=== PATIENT | female | born 1990 | race Hispanic/Latino ===

== ENCOUNTER 2017-04-24 00:03 | Inpatient (IN) | payer OTHER ==
[2017-04-24] VITALS (16 sets, daily range): BP systolic 91–111; BP diastolic 49–71
[~2017-04-24] VITALS: Ht 160 cm; Wt 88.0 kg
[~2017-04-24 00:03] MED LIST: ACETAMINOP160 MG/5 M PO; AMOXICILLIN500 MG PO; FERR SULFATE325 MG PO; IBUPROFEN600 MG PO; PENICILLIN V P250 MG PO; PRE-NATAL PO; TYLENOL 500MG TAB PO; TYLENOL325 MG PO; ZITHROMAX250 MG PO
[2017-04-24 00:39] LABS: HEMATOCRIT 29.7 % (37.0-47.0); HEMOGLOBIN 9.1 g/dl (12.0-16.0); MEAN CELL VOLUME 74.3 fL CALC (80.0-100.0); MEAN CORPUSCULAR HGB 22.8 pG CALC (26.0-32.0); MEAN CORPUSCULAR HGB CONC 30.6 g/L CALC (32.0-36.0); NEUT# 6.44 thou/uL (2.00-7.15); RED CELL DISTRI WIDTH 19.7 % (11.5-15.5)
[2017-04-24 00:40] LABS: URINE BILIRUBIN - DIPSTICK NEGATIVE (NEGATIVE); URINE BLOOD DIPSTICK NEGATIVE (NEGATIVE); URINE CLARITY SLIGHT CLOUDY; URINE COLOR YELLOW; URINE GLUCOSE - DIPSTICK NEGATIVE (NEGATIVE); URINE KETONE NEGATIVE (NEGATIVE); URINE LEUK ESTERASE NEGATIVE (Negative); URINE NITRITE - DIPSTICK NEGATIVE (Negative); URINE PROTEIN - DIPSTICK NEGATIVE (NEG-TRACE); URINE SPECIFIC GRAVITY 1.015; URINE UROBILINOGEN - DIPSTICK 0.2 E.U./dL (0.2)
[2017-04-24 00:46] LABS: BARBITURATES NEGATIVE (NEGATIVE); COCAINE NEGATIVE (NEGATIVE); METHADONE NEGATIVE (NEGATIVE); OXCYCODONE NEGATIVE (NEGATIVE); TETRAHYDROCANNABIONOL NEGATIVE (NEGATIVE); TRICYLIC ANTIDEPRESSANTS NEGATIVE (NEGATIVE)
[2017-04-24 01:02] LABS: ALBUMIN 3.1 g/dL (3.2-5.0); ALKALINE PHOSPHATASE 118 u/l (38-126); ANION GAP 11 (6-22 (CALC)); BILIRUBIN, TOTAL 0.2 mg/dL (0.0-1.4); BUN 6 mg/dL (7-17); BUN/CREATININE RATIO 12 (12-20 (CALC)); CALCIUM 8.9 mg/dL (8.4-10.2); CARBON DIOXIDE 24 mmol/l (22-30); CHLORIDE 107 mmol/l (95-108); CREATININE 0.5 mg/dL (0.5-1.0); GFR > 60 ML/MIN (>=60 (CALC)); GFR FOR AFR.AMER. > 60 ML/MIN (>=60 (CALC)); GLUCOSE 93 mg/dL (65-105); POTASSIUM 3.7 mmol/l (3.5-5.1); SGOT/AST 32 u/l (14-36); SGPT/ALT 32 u/l (9-52); SODIUM 138 mmol/l (137-146); TOTAL PROTEIN 6.4 g/dL (6.3-8.2)
[2017-04-24 15:38] LABS: HEMATOCRIT 25.1 % (37.0-47.0); HEMOGLOBIN 7.5 g/dl (12.0-16.0); IMMATURE GRANULOCYTES 0.9 % (0.0-1.0); MEAN CELL VOLUME 74.7 fL CALC (80.0-100.0); MEAN CORPUSCULAR HGB 22.3 pG CALC (26.0-32.0); MEAN CORPUSCULAR HGB CONC 29.9 g/L CALC (32.0-36.0); NEUT# 9.84 thou/uL (2.00-7.15); RED BLOOD COUNT 3.36 mill/uL (4.20-5.60); RED CELL DISTRI WIDTH 19.6 % (11.5-15.5)
[2017-04-25] VITALS (13 sets, daily range): BP systolic 92–112; BP diastolic 55–72
[2017-04-25 06:17] LABS: HEMATOCRIT 22.9 % (37.0-47.0); IMMATURE GRANULOCYTES 0.7 % (0.0-1.0); MEAN CELL VOLUME 74.8 fL CALC (80.0-100.0); MEAN CORPUSCULAR HGB 22.9 pG CALC (26.0-32.0); MEAN CORPUSCULAR HGB CONC 30.6 g/L CALC (32.0-36.0); NEUT# 7.58 thou/uL (2.00-7.15); RED BLOOD COUNT 3.06 mill/uL (4.20-5.60); RED CELL DISTRI WIDTH 19.6 % (11.5-15.5)
[2017-04-25 15:05] LABS: HEMATOCRIT 28.3 % (37.0-47.0); HEMOGLOBIN 8.8 g/dl (12.0-16.0); MEAN CELL VOLUME 77.1 fL CALC (80.0-100.0); MEAN CORPUSCULAR HGB CONC 31.1 g/L CALC (32.0-36.0); RED BLOOD COUNT 3.67 mill/uL (4.20-5.60); RED CELL DISTRI WIDTH 19.6 % (11.5-15.5)
[2017-04-26 07:20] VITALS: BP 107/66
[2017-04-26 16:05] VITALS: BP 106/69
[2017-04-26 18:57] VITALS: BP 106/65
[2017-04-27 04:09] VITALS: BP 110/71
[2017-04-27] MEDS ORDERED: LORTAB 7.57.5 MG PO (10:28)
[2017-04-27] MEDS ORDERED: IBUPROFEN600 MG PO (10:28)
== END 2017-04-27 12:05 | disposition home or self-care (01) | DRG 765 ==
LOC: OB 00:03
PROC: 10D00Z1 Extraction of Products of Conception, Low, Open Approach (ICD-10-PCS; principal; 2017-04-24)
PROC: 0UB70ZZ Excision of Bilateral Fallopian Tubes, Open Approach (ICD-10-PCS; 2017-04-24)
PROC: 30233N1 Transfusion of Nonautologous Red Blood Cells into Peripheral Vein, Percutaneous Approach (ICD-10-PCS; 2017-04-25)
PROC: 30233N1 Transfusion of Nonautologous Red Blood Cells into Peripheral Vein, Percutaneous Approach (ICD-10-PCS; 2017-04-25)
DX: O33.5XX0 Maternal care for disproportion due to unusually large fetus, not applicable or unspecified (principal); D62 Acute posthemorrhagic anemia; O99.02 Anemia complicating childbirth; D50.9 Iron deficiency anemia, unspecified; O90.81 Anemia of the puerperium; Z3A.39 39 weeks gestation of pregnancy; Z37.0 Single live birth
CPT/HCPCS: J2270; J2795; P9016

== ENCOUNTER 2018-02-06 14:57 | Emergency (ER) | payer SELFPAY ==
[~2018-02-06] VITALS: Ht 160 cm; Wt 64.2 kg
[~2018-02-06 14:57] MED LIST changes: +LORTAB 7.57.5 MG PO
[2018-02-06 15:54] LABS: HEMATOCRIT 27.5 % (37.0-47.0); HEMOGLOBIN 8.7 g/dl (12.0-16.0); IMMATURE GRANULOCYTES 0.3 % (0.0-1.0); MEAN CELL VOLUME 81.4 fL CALC (80.0-100.0); MEAN CORPUSCULAR HGB 25.7 pG CALC (26.0-32.0); MEAN CORPUSCULAR HGB CONC 31.6 g/L CALC (32.0-36.0); NEUT# 6.23 thou/uL (2.00-7.15); RED BLOOD COUNT 3.38 mill/uL (4.20-5.60); RED CELL DISTRI WIDTH 13.5 % (11.5-15.5)
[2018-02-06 16:09] LABS: INTERNATIONAL NORMALIZED RATIO 0.9 RATIO (0.7-1.3); PROTHROMBIN TIME 10.4 SECONDS (9.0-12.5)
[2018-02-06 16:10] LABS: ANION GAP 15 (6-22 (CALC)); BUN 10 mg/dL (7-17); BUN/CREATININE RATIO 15 (12-20 (CALC)); CARBON DIOXIDE 25 mmol/l (22-30); CHLORIDE 105 mmol/l (95-108); CREATININE 0.7 mg/dL (0.5-1.0); GFR > 60 ML/MIN (>=60 (CALC)); GFR FOR AFR.AMER. > 60 ML/MIN (>=60 (CALC)); POTASSIUM 3.7 mmol/l (3.5-5.1); SODIUM 141 mmol/l (137-146)
[2018-02-06 17:37] VITALS: BP 122/77
[2018-02-06 18:02] VITALS: BP 122/77
== END 2018-02-06 18:02 | disposition short-term general hospital (02) | DRG 761 ==
LOC: ED 14:57
PROVIDERS: Family Medicine
PROC: 30233N1 Transfusion of Nonautologous Red Blood Cells into Peripheral Vein, Percutaneous Approach (ICD-10-PCS; principal; 2018-02-06)
DX: N92.0 Excessive and frequent menstruation with regular cycle (principal)
CPT/HCPCS: P9016